=== PATIENT | male | born 1980 | race Caucasian/White ===

== ENCOUNTER 2018-06-15 09:48 | Emergency (ER) | payer SELFPAY ==
[~2018-06-15 09:48] MED LIST: DOXYCYCLINE HYCLATE 100 MG CAP/TAB PO SCH; SULFAMETHOX/TMP 800/160 MG 1 TAB PO SCH
[2018-06-15 09:53] VITALS: BP 153/97
--- NOTE | 2018-06-15 10:11 | EDPHY ---
H & P Stated Complaint: L zygomatic mass, no drainage Time Seen by Provider: 06/15/18 09:58 HPI/ROS: HPI: This is a 37-year-old male who presents with Chief Complaint: Bump on face Location: Left cheek Quality: Lump Duration: 1 month Signs and Symptoms: no fever, no nausea, no vomiting, no diarrhea, no urinary symptoms, no chest pain, no shortness of breath, no wheezing, no cough, no sore throat, no neck stiffness, no joint pain, no swollen glands, no ear pain, no rash Timing: Mild, constant Severity: Mild Context: Patient reports that he had as it on his left cheek that was there month ago. He is closed at and pustulant drainage came out. Now it is hardened and reddened. It has remained constant for the last 2 weeks. Patient denies any dental cavities, dental pain, nasal congestion, sinus pressure, vision changes, rashes. He applied warm compresses approximately 3 times 3 weeks ago with no relief. Modifying Factors: See above Comment: ROS: A comprehensive 10 system review of systems is otherwise negative aside from elements mentioned in the history of present illness. MEDICAL/SURGICAL/SOCIAL HISTORY: Medical history: Generally healthy. Does not take any regular medications. Surgical history: Carpal tunnel surgery, orthopedic surgeries Social history: Nonsmoker. Family history noncontributory. CONSTITUTIONAL: Extremely well-appearing, adult white male with red hair and complete alan on face, awake and alert, no obvious distress HEENT: Atraumatic and normocephalic, PERRL, EOMI. Nares patent; no rhinorrhea; no nasal mucosal edema. Tympanic membranes clear. Oropharynx clear, no exudate and moist pink mucosa. Airway patent. No lymphadenopathy. No meningismus. Cardiovascular: Normal S1/S2, regular rate, regular rhythm, without murmur rub or gallop. PULMONARY/CHEST: Symmetrical and nontender. Clear to auscultation bilaterally. Good air movement. No accessory muscle usage. ABDOMEN: Soft, nondistended, nontender, no rebound, no guarding, no peritoneal signs, no masses or organomegaly. No CVAT. EXTREMITIES: 2/2 pulses, strength 5/5, no deformities, no clubbing, no cyanosis or edema. NEUROLOGICAL: no focal neuro deficits. GCS 15. SKIN: Warm and dry, 3 mm indurated mildly erythematous lesion on left cheek; no significant surrounding erythema; no streaking. No drainage. Good capillary refill. Source: Patient Exam Limitations: No limitations - Personal History Current Tetanus/Diphtheria Vaccine: Unsure - Medical/Surgical History Hx Asthma: No Hx Chronic Respiratory Disease: No Hx Diabetes: No Hx Cardiac Disease: No Hx Renal Disease: No Hx Cirrhosis: No Hx Alcoholism: No Hx HIV/AIDS: No Hx Splenectomy or Spleen Trauma: No Other PMH: Ortho Sgys, carpal tunnel Sx - Social History Smoking Status: Current every day smoker Constitutional: Initial Vital Signs Temperature (C) 36.5 C 06/15/18 09:51 Heart Rate 80 06/15/18 09:51 Respiratory Rate 16 06/15/18 09:51 Blood Pressure 153/97 H 06/15/18 09:51 O2 Sat (%) 96 06/15/18 09:51 O2 Delivery Mode Room Air Allergies/Adverse Reactions: haloperidol [From Haldol] Allergy (Verified 06/15/18 09:50) haloperidol lactate [From Haldol] Allergy (Verified 06/15/18 09:50) Home Medications: Medication Instructions Recorded Ibuprofen [Motrin (*)] 800 mg PO Q6-8PRN #10 tab 03/06/18 Doxycycline Hyclate 100 mg PO BID #14 tab 06/15/18 Sulfamethox/Tmp 800/160 mg 1 tab PO BID #14 tab 06/15/18 [Bactrim Ds] Medical Decision Making ED Course/Re-evaluation: Vital signs reviewed and stable upon arrival. No signs of sinusitis/periapical abscess/facial cellulitis/periorbital cellulitis. No fluctuance to I and D. Placed on doxycycline and Bactrim. Advised warm compresses and wash with antibacterial soap twice a day. [facility] This patient was seen under the supervision of my secondary supervising physician. I evaluated care for this patient independently. Discussed this patient with Dr. Bee. Differential Diagnosis: Differential diagnosis includes but is not limited to acne, cellulitis, abscess , sinusitis. Departure - Departure Disposition: Home, Routine, Self-Care Clinical Impression: Cystic acne vulgaris Condition: Good Instructions: Warm Compress or Soak (ED) Additional Instructions: Wash her face twice a day with antibacterial soap like Dial and then pat dry. Take Doxycycline and Bactrim as directed until complete. Do not skip a dose. Take Tylenol 650 mg every 4 hours and/or Ibuprofen 600 mg every 8 hours with food as needed for pain. Apply warm compresses for 30 minutes at a time; 2-3 times per day for the next 1 -2 days. Return to the ER immediately if you experience redness, red streaks, have fevers /chills, flu like symptoms, limited range of motion, or any other symptoms that concern you. Referrals: [facility],. [Clinic] - 5-7 days, if not improved Prescriptions: Doxycycline Hyclate 100 mg PO BID #14 tab Sulfamethox/Tmp 800/160 mg [Bactrim Ds] 1 tab PO BID #14 tab
--- NOTE | 2018-06-15 11:28 | ASMTCMCOM ---
CM Note CM Note Notes: Met with patient to discuss process for Medicaid application, CICP, and sliding scale private pay health insurance. Patient is currently employeed, without health insurance and Arabella ([email or web address]) was able to confirm that patient is not eligible for Medicaid based on his income. I have provided patient with the information needed to apply for reduced cost health insurance and encouraged him to establish a primary care provider at [facility] or other provider after he has established health insurance. Patient informed that he can schedule an appointment at [facility] for an initial co-pay of $20. He is also aware that the clinic will work with him (sliding scale) until he is insured. I have MAPPED prescriptions for Bactrim and Doxycycline for a total of $27. Patient aware that this was a one time courtesy. He assures me that he will follow up with establishing a provider Date Signed: 06/15/2018 11:27 AM Electronically Signed By:Keesha Rivas RN
== END 2018-06-15 11:19 | disposition home or self-care (01) ==
DX: L70.0 Acne vulgaris (principal)

== ENCOUNTER 2018-07-08 17:09 | Emergency (ER) | payer SELFPAY | END 2018-07-08 17:58 | disposition left against medical advice (07) | DX: Z53.21 Procedure and treatment not carried out due to patient leaving prior to being seen by health care provider (principal) ==

== ENCOUNTER 2018-07-31 10:42 | Emergency (ER) | payer SELFPAY ==
--- NOTE | 2018-07-31 11:22 | EDPHY ---
General Time Seen by Provider: 07/31/18 11:13 Narrative: CHIEF COMPLAINT: Fall, knee pain HISTORY OF PRESENT ILLNESS: Patient presents by private vehicle with complaints of fall and knee pain. He does not know what happened because he was drinking alcohol that evening. He says sometime late Wednesday night he fell, landing on his left knee. He awoke Wednesday morning with moderate to severe pain left knee. It has become steadily worsening. Difficulty been or straightening the knee due to pain. Minimal improvement rest. He has no complaints of pain or injury anywhere else on his person. He has no numbness or tingling. No weakness. No redness, swelling or pain distal to the injury. No anticoagulants. No other associated complaints or modifying factors. ESTABLISHED ORTHOPEDIST: Dr. Rosenberg REVIEW OF SYSTEMS: Ten systems reviewed and are negative unless otherwise noted in the HPI PAST MEDICAL HISTORY: Carpal tunnel syndrome PAST SURGICAL HISTORY: Carpal tunnel release SOCIAL HISTORY: Daily tobacco use. Occasional alcohol use. Works as an excavator. Lives independently. FAMILY HISTORY: Noncontributory EXAMINATION: General Appearance: Alert, no distress. Well appearing Cardiovascular: DP pulses are symmetric with good signs of perfusion lower extremities. Neurological: A&O, light sensory symmetric, great toe strength symmetric Skin: Warm and dry, no rash. No petechiae or purpura. No puncture laceration. Extremities: Moderate swelling and significant tenderness to the left patella and joint lines of the left knee. Unable to fully range the knee due to pain but he does retain extension with no evidence of patellar tendon rupture. There is no bony tenderness of the left hip, left ankle, or left calcaneus. No signs of compartment syndrome. Psychiatric: Mood and affect normal DIFFERENTIAL DIAGNOSES: Including but not limited to fracture, sprain, strain, dislocation, subluxation MDM: 11:15 a.m. Fall 2 nights ago with acute left patellar fracture. No tibial plateau fracture. Neuro intact distally. He has moderate swelling but no evidence of DVT. There is no bony tenderness in the remainder of the left lower extremity. He has been walking on this for 2 days we discussed the possible complications of this. We discussed knee immobilizer and crutches. We discussed ice, elevation anti-inflammatories. Short course of pain medication. We discussed mandatory follow up with Orthopedics for definitive care. We discussed ED precautions for redness, warmth, fever, inability to tolerate pain. He is comfortable this plan. Discharged home stable condition. SUPERVISION: This patient was independently evaluated without direct involvement of or examination by the attending physician. - Diagnostics Imaging: I viewed and interpreted images myself - History History Review: I reviewed the patient's medical records Smoking Status: Current every day smoker - Objective Vital Signs: Initial Vital Signs Temperature (C) 98.1 F 07/31/18 10:49 Heart Rate 100 07/31/18 10:49 Respiratory Rate 16 07/31/18 10:49 Blood Pressure 155/85 H 07/31/18 10:49 O2 Sat (%) 98 07/31/18 10:49 O2 Delivery Mode Room Air Allergies/Adverse Reactions: haloperidol [From Haldol] Allergy (Verified 07/13/18 13:28) haloperidol lactate [From Haldol] Allergy (Verified 07/13/18 13:28) Home Medications: Medication Instructions Recorded oxyCODONE HCL/ACETAMINOPHEN 1 each PO Q4-6PRN PRN #12 tablet 07/31/18 [Percocet 5-325 mg Tablet] Departure - Departure Disposition: Home, Routine, Self-Care Clinical Impression: Fracture of patella, left, closed Qualifiers: Encounter type: initial encounter Fracture morphology: longitudinal Fracture alignment: displaced Qualified Code(s): S82.022A - Displaced longitudinal fracture of left patella, initial encounter for closed fracture Fall from standing Qualifiers: Encounter type: initial encounter Qualified Code(s): W19.XXXA - Unspecified fall, initial encounter Condition: Good Instructions: Patellar Fracture (ED) Additional Instructions: 1. Aleve 1 pill by mouth every 8 hr or 2 pills by mouth twice daily. 2. Pain medication as prescribed as needed. Do not mix with alcohol. 3. Contact your established orthopedist or the on-call orthopedist tomorrow morning for definitive care 4. Knee immobilizer and crutches as provided. Toe-touch weight-bearing as tolerated. Referrals: NONE *PRIMARY CARE P,. [Primary Care Provider] - As per Instructions Jame Rosenberg MD [Medical Doctor] - As per Instructions Jono Almaraz MD [Medical Doctor] - As per Instructions Prescriptions: oxyCODONE HCL/ACETAMINOPHEN [Percocet 5-325 mg Tablet] 1 each PO Q4-6PRN PRN # 12 tablet PRN Reason: Pain, Breakthrough
[2018-07-31] MEDS ORDERED: OXYCODONE/APAP 5/325 TAB PO ONE (11:23)
[2018-07-31 11:28] VITALS: BP 124/72
== END 2018-07-31 11:30 | disposition home or self-care (01) ==
DX: S82.022A Displaced longitudinal fracture of left patella, initial encounter for closed fracture (principal); W19.XXXA Unspecified fall, initial encounter; Y92.9 Unspecified place or not applicable; Y93.9 Activity, unspecified; Y99.9 Unspecified external cause status
CPT/HCPCS: L1830